=== PATIENT | male | born 1975 | race Asian ===

== ENCOUNTER 2024-11-02 22:41 | Emergency (ER) | payer OTHER, SELFPAY ==
[2024-11-02 22:57] VITALS: BP 150/106
[2024-11-03 00:46] VITALS: BMI 33.2
[2024-11-03 00:47] VITALS: BP 138/93
[2024-11-03 02:00] VITALS: BP 133/86
[2024-11-03 03:00] VITALS: BP 132/86
--- NOTE | 2024-11-03 03:32 | ED.GENMED ---
History of Present Illness
General
Chief Complaint: Skin Problem
Source: patient
Exam Limitations: none
Time Seen by Provider: 11/03/24 01:50
Nursing documentation reviewed up to this point in time: agreed with
History of Present Illness
History of Present Illness:
49-year-old male presenting to the emergency department today with concerns of redness and swelling irritation to the right lower extremity noticed in the evening yesterday. Ongoing today denies any systemic symptoms no history of immunosuppression.
Review of Systems
Review of Systems
Allergies reviewed?: Yes
All Other Systems: ROS reviewed and negative except as documented in HPI and ROS
Phy Exam
Physical Exam
Physical Exam:
GENERAL: Alert , in no apparent distress
EYE: pupils equal and reactive
NECK: Supple, no significant adenopathy.
ENT: o/p clr, mmm.
CARDIAC: Regular rate and rhythm .
LUNGS: Clear breath sounds bilaterally, no acute respiratory distress, no wheezes/rales/rhonchi
ABDOMEN: Soft, without focal tenderness, no r/g, no cvat
NEUROLOGICAL: Alert and oriented, no focal neuro deficits
SKIN: Warm and dry, skin intact.
MUSCULOSKELETAL: Right medial ankle with redness swelling warmth mild tenderness palpation overlying the medial malleolus, otherwise good range of motion of the ankle toes and knee. Well perfused.
PSYCH: Normal and appropriate interaction.
Course
Orders/Labs/Results
Orders:
Orders
11/03/24 03:27
Cephalexin Monohydrate [Keflex] 500 mg PO NOW STA
Vital Signs
Initial and Last Documented VS:
Initial Vital Signs
Temp Pulse Resp BP Pulse Ox
99 F 76 18 150/106 98
11/02/24 22:57 11/02/24 22:57 11/02/24 22:57 11/02/24 22:57 11/02/24 22:57
Last Documented Vital Signs
Temp Pulse Resp BP Pulse Ox
99 F 76 18 132/86 94
11/02/24 22:57 11/02/24 22:57 11/02/24 22:57 11/03/24 03:00 11/03/24 03:00
MDM/Problems Addressed
MDM/Problems Addressed:
49-year-old male presenting with concerns of redness and swelling to the right medial ankle region. Concerning for infection. No signs of joint infection with good range of motion. No systemic symptoms. Started on antibiotics otherwise stable
for outpatient management. Return precautions given.
*Pulse Oximetry
SaO2: 94
Oxygen Mode of Delivery: Room air
Patient hypoxic: no (94)
*Critical Care Note
Total Time (30-74mins, 75-104mins- exclusive of procedures): Not Applicable
ED Attending Note
-
Portions of this chart may have been created with voice recognition software.� Occasional wrong word or��sound alike� substitutions may have occurred due to the inherent limitations of voice recognition software.
Discharge Plan
Departure
Patient Disposition: Home (Routine Discharge)
Date of Disposition: 11/03/24
Time of Disposition: 03:34
Patient with high blood pressure during this ER visit?: No
Condition: Good
Covid-19: Not Applicable
Discharge Problem:
Cellulitis
Instructions: Cellulitis (Skin Infection), Adult (DC)
Prescriptions:
New
cephalexin 500 mg capsule
500 mg PO QID 7 Days Qty: 28 0RF
Referrals:
Flaco Horne MD [Family Provider, Internal Medicine]
Activity Restrictions/Additional Instructions:
You came to the emergency department today with concerns of redness and swelling consistent with likely infection. Please take the prescribed antibiotic and follow-up closely with your primary care doctor. Return for any worsening, new or
concerning symptoms.
Interventions
Interventions:
*Risk Screen - Suicide Last Done: 11/03/24 00:51
*General Assessment Last Done: 11/03/24 00:46
*Neglect/Abuse Screening Last Done: 11/03/24 00:51
*ED- Fall Risk Assessment Last Done: 11/03/24 00:46
*ED COVID-19 Vaccine History Last Done: 11/03/24 00:46
ED-Skin Assessment Last Done: 11/03/24 00:46
Discharge Date and Time
Print Language: MICRONESIAN
[2024-11-03] MEDS: KEFLEX 500 MG PO (03:48)
== END 2024-11-03 04:03 | disposition home or self-care (01) ==
LOC: EMR 22:41
PROVIDERS: EMERGENCY PHYSICIAN Emergency Medicine; FAMILY PHYSICIAN Internal Medicine
DX: L03.115 Cellulitis of right lower limb (principal); R22.41 Localized swelling, mass and lump, right lower limb
CPT/HCPCS: 99282